=== PATIENT | female | born 1990 | race Caucasian/White ===

== ENCOUNTER 2020-04-24 15:02 | Outpatient (REF) | payer OTHER, SELFPAY | END 2020-04-24 15:03 | disposition home or self-care (01) | LOC: HO.LNP 15:02 | PROVIDERS: Visit Provider Internal Medicine | DX: Z01.419 Encounter for gynecological examination (general) (routine) without abnormal findings (principal) | CPT/HCPCS: 88141; 88142 ==

== ENCOUNTER 2021-02-27 10:49 | Outpatient (REF) | payer OTHER, SELFPAY ==
[2021-02-27 13:56] LABS: Hemoglobin 14.6 g/dl (12.0-16.0); Mean Corpuscular HGB Conc 32.4 g/dl (31.0-35.0); Mean Corpuscular Hemoglobin 29.7 pg (27.0-33.0); Mean Corpuscular Volume 91.6 fL (80-98); Mean Platelet Volume 11.8 fL (9.4-12.3); Platelet Count 240 X10*3/uL (160-400); Red Blood Count 4.91 X10*6/uL (4.20-5.50); Red Cell Distribution Width 12.2 % (11.0-16.0)
[2021-02-27 14:09] LABS: Alanine Aminotransferase 13 U/L (0-31); Albumin Level 4.6 g/dL (3.5-5.0); Alkaline Phosphatase 51 U/L (39-117); Anion Gap 13 (12-20); Aspartate Amino Transferase 15 U/L (5-31); Blood Urea Nitrogen 14 mg/dL (9-16); Calcium 9.3 mg/dL (8.4-10.2); Carbon Dioxide 26 mmol/L (22-29); Chloride 105 mmol/L (96-108); Cholesterol 177 mg/dL; Estimated Glomerular Filt Rate > 60; Glucose Fasting 94 mg/dL (60-99); HDL Cholesterol 50 mg/dL; LDL Cholesterol Calculated 111 mg/dl; Sodium 140 mmol/L (135-145); Total Protein 7.6 g/dL (6.5-8.0); Triglycerides 80 mg/dL
== END 2021-02-27 10:50 | disposition home or self-care (01) ==
LOC: HO.HMGCLDS 10:49
PROVIDERS: PCP Internal Medicine; Visit Provider Internal Medicine
DX: Z00.00 Encounter for general adult medical examination without abnormal findings (principal)
CPT/HCPCS: 36415; 80053; 80061; 85027

== ENCOUNTER 2021-08-01 09:14 | Emergency (ER) | payer OTHER, SELFPAY ==
--- NOTE | ~2021-08-01 | CT_ITS ---
EXAMINATION: CT-THORACIC SPINE CT-LUMBOSACRAL SPINE CLINICAL INFORMATION: Low back pain with bruising. COMPARISON: None TECHNIQUE: Helical CT scan of the thoracic and lumbosacral spine were obtained without administration of any contrast. Images are reconstructed in axial, coronal and sagittal plane. FINDINGS: Thoracic spine: The height heights of the thoracic vertebrae are well-maintained. Intervertebral disc heights are well-maintained. The posterior appendages are intact. The pre and paraspinal soft tissues are unremarkable. Lumbosacral spine: Mild mid lumbar dextroscoliosis is present. The heights of the lumbar vertebrae are well-maintained. Alignment is intact. Mild degenerative disc disease is noted at L4-5 and L5-S1. The posterior appendages are intact except for spondylolysis at L5 on the right. Focal area of dense sclerosis is noted at the pars interarticularis on the left (216:13) may represent reactive sclerosis versus underlying healing spondylolysis. No evidence of any paraspinal hematoma. Asymmetric partial fusion of the left sacroiliac joint is noted (106:15). CT/CT lumbar spine wo con IMPRESSION: 1. No CT evidence of any compression fracture identified involving the thoracolumbar spine. 2. No CT evidence of any significant paraspinal soft tissue hematoma. 3. Mild degenerative disc disease at L4-5 and L5-S1. 4. Spondylolysis at L5 on the right and focal radiographs dense sclerosis of the pars interarticularis on the left also on L5, may represent reactive sclerosis versus underlying healing spondylolysis. 5. Asymmetric partial fusion of the left sacroiliac joints.
--- NOTE | ~2021-08-01 | CT_ITS ---
EXAMINATION: CT-THORACIC SPINE CT-LUMBOSACRAL SPINE CLINICAL INFORMATION: Low back pain with bruising. COMPARISON: None TECHNIQUE: Helical CT scan of the thoracic and lumbosacral spine were obtained without administration of any contrast. Images are reconstructed in axial, coronal and sagittal plane. FINDINGS: Thoracic spine: The height heights of the thoracic vertebrae are well-maintained. Intervertebral disc heights are well-maintained. The posterior appendages are intact. The pre and paraspinal soft tissues are unremarkable. Lumbosacral spine: Mild mid lumbar dextroscoliosis is present. The heights of the lumbar vertebrae are well-maintained. Alignment is intact. Mild degenerative disc disease is noted at L4-5 and L5-S1. The posterior appendages are intact except for spondylolysis at L5 on the right. Focal area of dense sclerosis is noted at the pars interarticularis on the left (216:13) may represent reactive sclerosis versus underlying healing spondylolysis. No evidence of any paraspinal hematoma. Asymmetric partial fusion of the left sacroiliac joint is noted (106:15). CT/CT thoracic spine wo con IMPRESSION: 1. No CT evidence of any compression fracture identified involving the thoracolumbar spine. 2. No CT evidence of any significant paraspinal soft tissue hematoma. 3. Mild degenerative disc disease at L4-5 and L5-S1. 4. Spondylolysis at L5 on the right and focal radiographs dense sclerosis of the pars interarticularis on the left also on L5, may represent reactive sclerosis versus underlying healing spondylolysis. 5. Asymmetric partial fusion of the left sacroiliac joints.
[2021-08-01 09:26] VITALS: BP 140/81; PULSE 97; RESP 16; TEMP 36.4; O2SAT 99; BMI 33.3
--- NOTE | 2021-08-01 10:43 | ED.GENADULT ---
HPI - General Adult General Chief complaint: Back Pain/Injury Stated complaint: Lower back pain Time Seen by Provider: 08/01/21 10:24 Source: patient Mode of arrival: ambulatory Limitations: no limitations History of Present Illness HPI narrative: 31-year-old female presents from urgent care for concern for low back pain in the setting of unexplained ecchymosis. Patient has had low back pain for 10 days, now has bruising on her low back. Patient was seen 1 week ago for low back pain, prescribed prednisone and meloxicam. States that her back pain got better, but after she finished the prednisone 2 days ago it is still there. States that the original back pain started July 21 when she reached across her car in a awkward position and hurt her back. This has happened before, it was never this bad, and she never had bruising. No red flag symptoms, no saddle paresthesias, no fevers, no bowel or bladder incontinence, no leg weakness, no personal history of IV drug use or cancer, no history of bleeding disorder. Related Data Home Medications Medication Instructions Recorded Confirmed ibuprofen 600 mg tablet 600 mg PO Q8H PRN 02/24/20 02/26/21 Previous Rx's Medication Instructions Recorded meloxicam 15 mg tablet 15 mg PO DAILY #7 tab 07/25/21 prednisone 20 mg tablet 40 mg PO DAILY 5 Days #10 tab 08/01/21 Allergies Allergy/AdvReac Type Severity Reaction Status Date / Time No Known Allergies Allergy Verified 08/01/21 09:28 [No Known Allergies*] Review of Systems Constitutional: Constitutional: Denies body ache(s), Denies chills, Denies fatigue, Denies fever(s), Denies headache(s), Denies malaise and Denies weakness Eyes: Eyes: Denies diplopia ENT: Denies vertigo, Denies dizziness, Denies otalgia, Denies headache(s), Denies mouth pain, Denies post nasal drip, Denies sinus pain, Denies sinus pressure, Denies sore throat and Denies throat swelling Cardiovascular: Cardiovascular: Denies chest pain, Denies syncope, Denies leg edema, Denies lightheadedness, Denies Loss of Consciousness, Denies palpitations and Denies dyspnea Respiratory: Respiratory: Denies chest congestion, Denies cough and Denies dyspnea Gastrointestinal: Gastrointestinal: Denies abdominal pain, Denies hematochezia, Denies constipation, Denies fecal incontinence, Denies diarrhea and Denies vomiting Genitourinary: Genitourinary: Denies urinary incontinence Musculoskeletal: Musculoskeletal: Reports no additional musculoskeletal complaints and Denies muscle weakness Integumentary/Breasts: Skin/Breast: Denies skin pain Comments: mild bilateral brusing mid back Neurologic: Denies confusion, Denies vertigo, Denies dizziness, Denies syncope, Denies headache(s), Denies Sensory deficit (Neuro) and Denies weakness Psychiatric: Psychiatric: Denies anxiety, Denies confusion and Denies depression Endocrine: Endocrine: Denies fatigue and Denies palpitations Allergic/Immunologic: Allergic/Immunologic: Denies throat swelling PMF Past Medical History Medical History Annual physical exam Vaginitis Surgical History No pertinent past surgical history Family History Family History Father Diabetes mellitus Mother No problems noted. 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 Current occupational exposures/hazards: No Cognitive needs: No Hearing needs: No Vision needs: No Physical Exam ED Vital Signs: Vital Signs - 24 hr 08/01/21 09:26 08/01/21 12:57 Temperature 97.5 F Pulse Rate 97 87 Respiratory Rate 16 18 Blood Pressure 140/81 H 124/84 Pulse Oximetry 99 98 BMI result Body Mass Index 33.3 Const General: no acute distress, alert and awake; No confusion Nutritional Appearance: obese Orientation/consciousness: patient oriented x3 and No confusion Limitations: no limitations HENMT Head: Yes normal to inspection, Yes No palpable skull fracture present, Yes normocephalic, Yes atraumatic and No abrasion Ears: hearing grossly normal bilaterally General nose exam: Normal external nose present Face and sinus: Yes normal facial exam Mouth: Normal oral and palatal mucosa present Throat: Yes posterior oropharynx normal Eyes Conjunctivae: conjunctivae normal Pupils: Equal, round and reactive pupils present Neck Neck: Yes normal visual inspection, Yes no meningeal signs and Yes trachea midline Resp Effort & Inspection: normal respiratory effort and able to speak in complete sentences Auscultation: clear to auscultation bilaterally, no crackles, no rales, no rhonchi and no wheezes Cardio Rate: regular rate Rhythm: regular rhythm GI Inspection: Yes normal to inspection Palpation (GI): Soft to palpation, not firm, nontender, no guarding and not rigid General: Yes no CVA tenderness Back/Spine/Pelvis Back: no CVA tenderness Cervical Spine: normal cervical lordosis, cervical ROM normal, No cervical spasm, No Cervical spine tenderness and No step off deformity Thoracic/Lumbar Spine: pain with thoraco-lumbar ROM, No thoracic spinal tenderness and No lumbar spinal tenderness Pelvis: no pain with anterior-posterior compression, no pain with lateral compression and buttock tenderness on the left Skin General skin exam: ecchymosis Neuro General: patient oriented x3, no meningeal signs and No confusion Cranial nerves: Yes Equal, round and reactive pupils present Sensory Exam: No Sensory deficit (Neuro) Extrem General: Yes normal to inspection, Yes full ROM and Yes capillary refill normal Psych Appearance: well kempt Mental Status: mental status grossly normal Speech and movement: Normal speech and movement present Affect: normal affect Attitude: cooperative Thought process: Normal thought process present Course Course Course Narrative: 31-year-old female presents with back pain that is not getting better after 10 days, with ecchymosis. She was sent from urgent care. Labs and coagulation studies are unremarkable, CT shows mild degenerative disc disease at L4-L5, and L5-S1. There is fusion of left SI joint. There is spondylolysis at L5 on the right, question if this is acute Patient has no vertebral point tenderness, no red flag symptoms. Discussed with Dr Michel, who felt this was an appropriate work up. Restarted prednisone, counseled patient to follow-up with [facility]. Reevaluation(s) Reevaluation #1: CT/CT lumbar spine wo con IMPRESSION: ? 1. No CT evidence of any compression fracture identified involving the thoracolumbar spine. 2. No CT evidence of any significant paraspinal soft tissue hematoma. 3. Mild degenerative disc disease at L4-5 and L5-S1. 4. Spondylolysis at L5 on the right and focal radiographs dense sclerosis of the pars interarticularis on the left also on L5, may represent reactive sclerosis versus underlying healing spondylolysis. 5. Asymmetric partial fusion of the left sacroiliac joints. Medical Decision Making Lab Data Result diagrams: 08/01/21 11:03 08/01/21 11:03 Labs: Lab Results 08/01/21 08/01/21 08/01/21 Range/Units 10:57 10:57 11:03 WBC 10.3 (4.8-10.8) X10*3/uL RBC 5.06 (4.20-5.50) X10*6/uL Hgb 15.4 (12.0-16.0) g/dl Hct 46.2 (37.0-47.0) % MCV 91.3 (80.0-98.0) fL MCH 30.4 (27.0-33.0) pg MCHC 33.3 (31.0-35.0) g/dl RDW 12.3 (11.0-16.0) % Plt Count 303 (160-400) X10*3/uL MPV 10.0 (9.4-12.3) fL Immature Gran % (Auto) 0.7 H (0.0-0.4) % Neut % (Auto) 61.8 (45-73) % Lymph % (Auto) 25.6 (20-40) % [place] % (Auto) 7.6 (2-11) % Eos % (Auto) 3.4 (0-4) % Baso % (Auto) 0.9 (0-2) % Lymph # (Auto) 2.6 (1.2-4.9) X10*3/uL [place] # (Auto) 0.8 (0.1-1.2) X10*3/uL Eos # (Auto) 0.4 (0.0-0.4) X10*3/uL Baso # (Auto) 0.1 (0.0-0.2) X10*3/uL Abs Immat Gran (auto) 0.07 H (0.00-0.03) X10*3/uL Absolute Neuts (auto) 6.3 (2.0-8.3) x10*3/uL Absolute Nucleated RBC 0.000 (0.0-0.012) X10*3/uL Nucleated RBC % (auto) 0.0 (0.0-0.2) /100WBC PT (9.9-13.0) SEC INR (0.9-1.1) APTT (24.1-38.0) SEC Sodium (135-145) mmol/L Potassium (3.3-5.1) mmol/L Chloride (96-108) mmol/L Carbon Dioxide (22-29) mmol/L Anion Gap (12-20) BUN (9-16) mg/dL Creatinine (0.5-1.4) mg/dL Estim Creat Clear Calc Estimated GFR Random Glucose (60-115) mg/dL Calcium (8.4-10.2) mg/dL Total Bilirubin (0.0-1.0) mg/dL AST (5-31) U/L ALT (0-31) U/L Alkaline Phosphatase (39-117) U/L Total Protein (6.5-8.0) g/dL Albumin (3.5-5.0) g/dL Urine Color STRAW Urine Appearance CLEAR Urine pH 6.5 (5.0-8.0) Ur Specific [place] 1.010 (1.005-1.025) Urine Protein NEG (NEG-TRACE) MG/DL Urine Glucose (UA) NEG (NEG) MG/DL Urine Ketones NEG (NEG) MG/DL Urine Blood NEG (NEG) Urine Nitrite NEG (NEG) Ur Leukocyte Esterase NEG (NEG) Urine Test NEGATIVE (NEGATIVE) 08/01/21 08/01/21 Range/Units 11:03 11:03 WBC (4.8-10.8) X10*3/uL RBC (4.20-5.50) X10*6/uL Hgb (12.0-16.0) g/dl Hct (37.0-47.0) % MCV (80.0-98.0) fL MCH (27.0-33.0) pg MCHC (31.0-35.0) g/dl RDW (11.0-16.0) % Plt Count (160-400) X10*3/uL MPV (9.4-12.3) fL Immature Gran % (Auto) (0.0-0.4) % Neut % (Auto) (45-73) % Lymph % (Auto) (20-40) % [place] % (Auto) (2-11) % Eos % (Auto) (0-4) % Baso % (Auto) (0-2) % Lymph # (Auto) (1.2-4.9) X10*3/uL [place] # (Auto) (0.1-1.2) X10*3/uL Eos # (Auto) (0.0-0.4) X10*3/uL Baso # (Auto) (0.0-0.2) X10*3/uL Abs Immat Gran (auto) (0.00-0.03) X10*3/uL Absolute Neuts (auto) (2.0-8.3) x10*3/uL Absolute Nucleated RBC (0.0-0.012) X10*3/uL Nucleated RBC % (auto) (0.0-0.2) /100WBC PT 9.7 L (9.9-13.0) SEC INR 0.9 (0.9-1.1) APTT 36.0 (24.1-38.0) SEC Sodium 137 (135-145) mmol/L Potassium 4.3 (3.3-5.1) mmol/L Chloride 100 (96-108) mmol/L Carbon Dioxide 31 H (22-29) mmol/L Anion Gap 10 L (12-20) BUN 15 (9-16) mg/dL Creatinine 0.84 (0.5-1.4) mg/dL Estim Creat Clear Calc 109.0 Estimated GFR > 60 Random Glucose 104 (60-115) mg/dL Calcium 10.0 D (8.4-10.2) mg/dL Total Bilirubin 1.4 H (0.0-1.0) mg/dL AST 21 (5-31) U/L ALT 45 H (0-31) U/L Alkaline Phosphatase 71 D (39-117) U/L Total Protein 7.8 (6.5-8.0) g/dL Albumin 4.6 (3.5-5.0) g/dL Urine Color Urine Appearance Urine pH (5.0-8.0) Ur Specific [place] (1.005-1.025) Urine Protein (NEG-TRACE) MG/DL Urine Glucose (UA) (NEG) MG/DL Urine Ketones (NEG) MG/DL Urine Blood (NEG) Urine Nitrite (NEG) Ur Leukocyte Esterase (NEG) Urine Test (NEGATIVE) Discharge Plan 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 Please fill your prescription for prednisone intake as prescribed. Please call [facility] at the following number. I have referred you to them but I want you to call them and see them as well.[phone] Please take prednisone as prescribed Prescriptions: New prednisone 20 mg tablet 40 mg PO DAILY 5 Days Qty: 10 0RF No Action ibuprofen 600 mg tablet 600 mg PO Q8H PRN0RF meloxicam 15 mg tablet 15 mg PO DAILY Qty: 7 0RF Referrals: [facility] [Outside] - 2 days Interventions: ED Discharge Assessment Last Done: 08/01/21 13:29 Discharge Date/Time: 08/01/21 13:29
[2021-08-01 11:24] LABS: MANUAL DIFF FLAG NO
[2021-08-01 11:26] LABS: Appearance Urine CLEAR; Color Urine STRAW; Glucose Urine UA NEG (NEG); Leukocyte Esterase Urine NEG (NEG); Nitrite Urine NEG (NEG); PH 6.5 (5.0-8.0); Urine Blood NEG (NEG); Urine Ketones NEG (NEG); Urine Protein NEG (NEG-TRACE)
[2021-08-01 11:28] LABS: UPreg QC Valid YES; Urine Pregnancy NEGATIVE (NEGATIVE)
[2021-08-01 11:30] LABS: Basophils Absolute Auto 0.1 X10*3/uL (0.0-0.2); Basophils Percent Auto 0.9 % (0-2); Eosinophils Absolute Auto 0.4 X10*3/uL (0.0-0.4); Eosinophils Percent Auto 3.4 % (0-4); Hematocrit 46.2 % (37.0-47.0); Hemoglobin 15.4 g/dl (12.0-16.0); Imm Gran Abs Auto 0.07 X10*3/uL (0.00-0.03); Imm Gran Pct Auto 0.7 % (0.0-0.4); Lymphocytes Absolute Auto 2.6 X10*3/uL (1.2-4.9); Lymphocytes Percent Auto 25.6 % (20-40); Mean Corpuscular HGB Conc 33.3 g/dl (31.0-35.0); Mean Corpuscular Hemoglobin 30.4 pg (27.0-33.0); Mean Corpuscular Volume 91.3 fL (80.0-98.0); Monocytes Absolute Auto 0.8 X10*3/uL (0.1-1.2); Monocytes Percent Auto 7.6 % (2-11); Neutrophils Absolute Auto 6.3 x10*3/uL (2.0-8.3); Neutrophils Percent Auto 61.8 % (45-73); Platelet Count 303 X10*3/uL (160-400); Red Blood Count 5.06 X10*6/uL (4.20-5.50); Red Cell Distribution Width 12.3 % (11.0-16.0); White Blood Count 10.3 X10*3/uL (4.8-10.8)
[2021-08-01 11:41] LABS: Alanine Aminotransferase 45 U/L (0-31); Albumin Level 4.6 g/dL (3.5-5.0); Alkaline Phosphatase 71 U/L (39-117); Anion Gap 10 (12-20); Aspartate Amino Transferase 21 U/L (5-31); Bilirubin Total 1.4 mg/dL (0.0-1.0); Blood Urea Nitrogen 15 mg/dL (9-16); Carbon Dioxide 31 mmol/L (22-29); Chloride 100 mmol/L (96-108); Estimated Glomerular Filt Rate > 60; Glucose Random 104 mg/dL (60-115); Potassium 4.3 mmol/L (3.3-5.1); Sodium 137 mmol/L (135-145); Total Protein 7.8 g/dL (6.5-8.0)
[2021-08-01 11:46] LABS: INTERNATIONAL NORM RATIO 0.9 (0.9-1.1); Prothrombin Time 9.7 SEC (9.9-13.0)
[2021-08-01 12:57] VITALS: BP 124/84; PULSE 87; RESP 18; O2SAT 98
== END 2021-08-01 13:29 | disposition home or self-care (01) ==
PROVIDERS: Physician Assistant; Emergency Provider Emergency Medicine; PCP Internal Medicine
DX: M54.50 Low back pain, unspecified (principal); M47.816 Spondylosis without myelopathy or radiculopathy, lumbar region; R23.3 Spontaneous ecchymoses
CPT/HCPCS: 36415; 72128; 72131; 80053; 81003; 81025; 85025; 85610; 85730; 99284

== ENCOUNTER 2022-03-25 12:33 | Outpatient (REF) | payer OTHER, SELFPAY ==
--- NOTE | 2022-03-25 17:15 | PFT_ITS ---
INDICATION: Asthma. SPIROMETRY: FEV1 to FVC of 92% with an FEV1 of 3.96 L, which is 121% predicted, an FVC of 4.32 L, which is 111% predicted. No significant response to bronchodilators noted. Maximum voluntary ventilation 125% predicted. LUNG VOLUMES: Total lung capacity 105% predicted with an expiratory reserve volume of 82% predicted. DIFFUSION CAPACITY: DLCO 118% predicted. COMPARISONS: None. INTERPRETATION: No obstructive nor restrictive ventilatory defects identified. No significant response to bronchodilators noted. Normal maximum voluntary ventilation. Lung volumes are within normal limits and diffusion capacity also within normal limits. Her flow volume loop appears to be completely normal except for some sawtooth pattern during the inspiratory limb which may be secondary to redundant upper airway tissues. If asthma is in the differential, methacholine challenge may be helpful in assessing for hyper-reactive airways, otherwise clinical correlation warranted. Neto Conley MD MR/MODL / [id number]
== END 2022-03-25 12:34 | disposition home or self-care (01) ==
LOC: HO.RESP 12:33
PROVIDERS: PCP Internal Medicine; Visit Provider Internal Medicine
DX: J45.909 Unspecified asthma, uncomplicated (principal)
CPT/HCPCS: 94060; 94727; 94729

== ENCOUNTER 2023-03-03 07:31 | Outpatient (AMB) | payer OTHER, SELFPAY ==
--- NOTE | 2023-03-03 07:43 | A.OFFPC_ITS ---
Vital Signs 03/03/23 07:45 Height 5 ft 5 in Weight 195 lb BMI 32.4 BP 108/64 Blood Pressure Location Rt brachial Position Sitting Pulse 87 Pulse Source Pulse Oximeter Pulse Oximetry (%) 98 Oxygen Delivery Method Room Air Intake Visit Reasons: Annual PE Allergies No Known Allergies [No Known Allergies*] Allergy (Verified 03/03/23 07:45) Medication List - Last Reconciled 03/03/23 by Johana Alexandre MD albuterol sulfate 90 mcg/actuation 2 puffs inhalation Q6H PRN fluticasone propion-salmeterol 100-50 mcg/dose (Advair Diskus) 1 inh inhalation BID loratadine (Claritin) 10 mg PO DAILY meloxicam PO PRN Tobacco use date assessed: 07/11/22 Dental Screening Dental Screen Date: 03/03/23 Did you have a dental visit in the last 12 months?: No Did you have a dental problem in the last 6 months where you did not have access to dental care?: No Was dental information given to patient?: No HPI Annual PE HPI Details PATIENT PRESENTS FOR PHYSICAL. She just got . Asthma has been well controlled without Advair. Patient does not need to use albuterol more than once every couple months since she moved to a new apartment. [facility] Medical History Vaginitis Annual physical exam Surgical History No pertinent past surgical history Family History Father Diabetes mellitus Mother No problems noted. 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 How often do you have a drink containing alcohol?: Never 3. How often do you have six or more drinks on one occasion?: Never Total Score: 0 Score Reviewed/Action Taken: No VAISHNAVI-7 AMB Questionnaire VAISHNAVI-7 Date VAISHNAVI - 7 assessed: 07/11/22 Source: Developed by Drs. Benji Hernández, Elizabeth Keating, Michael Vazquez and colleagues, with an educational sony from [employer]. Review of Systems Const All systems reviewed & are unremarkable except as noted in HPI and below Reports no additional complaints Eyes Reports no additional complaints ENT Reports no additional complaints Card Reports no additional complaints Resp Reports no additional complaints GI Reports no additional complaints Reports no additional complaints Physical exam (Primary Care) Vital Signs: Last Vital Signs Pulse 87 03/03/23 07:45 BP 108/64 03/03/23 07:45 Pulse Ox 98 03/03/23 07:45 Oxygen Delivery Method Room Air 03/03/23 07:45 BMI result Body Mass Index 32.4 Tobacco/Smoking Status: Tobacco use Status Tobacco use date assessed 07/11/22 03/03/23 07:45 Patient Tobacco Use Status Former Tobacco user 03/03/23 07:45 Tobacco use type Cigarette 03/03/23 07:45 e-Cigarette/Vaping Use Never Used 03/03/23 07:45 Thrive Assessment: Date of Thrive Assessment Date Thrive assessed 07/11/22 03/03/23 07:45 Const General: no acute distress HENMT Head: Yes normal to inspection Ears: hearing grossly normal bilaterally General nose exam: Normal external nose present Face and sinus: Yes normal facial exam Mouth: Normal oral and palatal mucosa present Eyes General: appearance normal, both eyes and all related structures Neck Neck: Yes no lymphadenopathy and Yes supple Chest Chest palpation & inspection: normal inspection of the chest Breast/axilla inspection: normal inspection of the breasts Resp Effort & Inspection: normal respiratory effort Auscultation: clear to auscultation bilaterally Cardio Rhythm: regular rhythm Heart sounds: S1 normal heart sound present and S2 normal heart sound present GI Inspection: Yes normal to inspection Palpation (GI): Soft to palpation Auscultation: normal bowel sounds External Female Exam: normal external appearance Speculum Exam - Vagina: normal appearance of the vagina Speculum Exam - Cervix: normal appearance of the cervix Bimanual exam- vagina & uterus: normal bimanual exam Assessment and Plan Assessment & Plan (1) Annual physical exam: Code(s): Z00.00 - Encounter for general adult medical examination without abnormal findings Plan: Well-balanced diet and regular physical activity discussed with the patient . she will have fasting labs today. Pap smear was done (2) Asthma: Comment: Mild p.r.n. albuterol Code(s): J45.909 - Unspecified asthma, uncomplicated Orders: Orders Comprehensive [place]. Panel Fast Today Z00.00 - Encounter for general adult medical examination without abnormal findings Complete Blood Count Auto Diff Today Z00.00 - Encounter for general adult medical examination without abnormal findings Pap Smear Today Z00.00 - Encounter for general adult medical examination without abnormal findings Lipid Panel Today Z00.00 - Encounter for general adult medical examination without abnormal findings Coding Level of Care Code Est Pt Prev Care 18-39y(44779) Diagnoses Annual physical exam Z00.00 Asthma J45.909
[2023-03-03 07:45] VITALS: BP 108/64; PULSE 87; O2SAT 98; BMI 32.4
== END 2023-03-03 08:25 | disposition home or self-care (01) ==
PROVIDERS: Visit Provider Internal Medicine
DX: Z00.00 Encounter for general adult medical examination without abnormal findings (principal); J45.909 Unspecified asthma, uncomplicated
CPT/HCPCS: 99395

== ENCOUNTER 2023-03-03 08:25 | Outpatient (REF) | payer OTHER, SELFPAY ==
[2023-03-07 06:23] LABS: HPV mRNA E6/E7 rflx Not Detected (Not Detected)
== END 2023-03-03 08:26 | disposition home or self-care (01) ==
LOC: HO.LNP 08:25
PROVIDERS: Visit Provider Internal Medicine
DX: Z01.419 Encounter for gynecological examination (general) (routine) without abnormal findings (principal)
CPT/HCPCS: 87624; 88142

== ENCOUNTER 2023-03-03 08:27 | Outpatient (REF) | payer OTHER, SELFPAY ==
[2023-03-03 12:03] LABS: MANUAL DIFF FLAG NO
[2023-03-03 12:05] LABS: Basophils Absolute Auto 0.1 X10*3/uL (0.0-0.2); Basophils Percent Auto 1.7 % (0-2); Eosinophils Absolute Auto 0.2 X10*3/uL (0.0-0.4); Eosinophils Percent Auto 2.8 % (0-4); Hematocrit 46.4 % (37.0-47.0); Hemoglobin 14.9 g/dl (12.0-16.0); Imm Gran Abs Auto 0.02 X10*3/uL (0.00-0.03); Imm Gran Pct Auto 0.3 % (0.0-0.4); Lymphocytes Absolute Auto 1.7 X10*3/uL (1.2-4.9); Lymphocytes Percent Auto 24.4 % (20-40); Mean Corpuscular HGB Conc 32.1 g/dl (31.0-35.0); Mean Corpuscular Hemoglobin 29.2 pg (27.0-33.0); Mean Platelet Volume 11.4 fL (9.4-12.3); Monocytes Absolute Auto 0.7 X10*3/uL (0.1-1.2); Monocytes Percent Auto 9.5 % (2-11); Neutrophils Absolute Auto 4.3 x10*3/uL (2.0-8.3); Neutrophils Percent Auto 61.3 % (45-73); Platelet Count 249 X10*3/uL (160-400); Red Cell Distribution Width 12.2 % (11.0-16.0); White Blood Count 7.1 X10*3/uL (4.8-10.8)
[2023-03-03 12:36] LABS: Alanine Aminotransferase 19 U/L (0-31); Albumin Level 4.4 g/dL (3.5-5.0); Alkaline Phosphatase 73 U/L (39-117); Anion Gap 12 (12-20); Aspartate Amino Transferase 18 U/L (5-31); Bilirubin Total 1.3 mg/dL (0.0-1.0); Blood Urea Nitrogen 13 mg/dL (9-16); Calcium 9.7 mg/dL (8.4-10.2); Carbon Dioxide 24 mmol/L (22-29); Chloride 110 mmol/L (96-108); Cholesterol 180 mg/dL (<200); Estimated Glomerular Filt Rate > 60; Glucose Fasting 108 mg/dL (60-99); HDL Cholesterol 42 mg/dL (>40); LDL Cholesterol Calculated 120 mg/dL (<100); Potassium 4.1 mmol/L (3.3-5.1); Sodium 142 mmol/L (135-145); Total Protein 7.7 g/dL (6.5-8.0); Triglycerides 90 mg/dL (<150)
== END 2023-03-03 08:28 | disposition home or self-care (01) ==
LOC: HO.HMGCLDS 08:27
PROVIDERS: PCP Internal Medicine; Visit Provider Internal Medicine
DX: Z00.00 Encounter for general adult medical examination without abnormal findings (principal)
CPT/HCPCS: 36415; 80053; 80061; 85025

== ENCOUNTER 2023-09-08 09:38 | Outpatient (AMB) | payer OTHER, SELFPAY ==
[2023-09-08 10:48] VITALS: BP 130/80; PULSE 92; TEMP 36.4; O2SAT 98; BMI 33.1
--- NOTE | 2023-09-08 10:48 | MHC.OFFWIV ---
Intake Vital Signs 09/08/23 10:48 Height 5 ft 5 in Weight 199 lb BMI 33.1 BP 130/80 Blood Pressure Location Lt brachial Position Sitting Pulse 92 Pulse Source Pulse Oximeter Temp 97.6 F Temp Source Temporal Artery Scan Pulse Oximetry (%) 98 Oxygen Delivery Method Room Air Intake Visit Reasons: EP cough short of breath Intake Note: pt is here today for cough short of breath started 3 weeks ago Patient Tobacco Use Status: Former Tobacco user Allergies No Known Allergies [No Known Allergies*] Allergy (Verified 09/08/23 11:24) Do you need a note to return to daycare/school/sports/work: No HPI HPI Comments History of Present Illness Details 33-year-old female presents to the office for a sick visit. Patient reports getting repeated upper respiratory tract infections in the past few months. Currently she started getting sick again 2 days ago. 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 Patient is reporting symptoms of sinus congestion, postnasal drip and shortness of breath. [facility] Medical History Vaginitis Annual physical exam Surgical History No pertinent past surgical history Family History Father Diabetes mellitus Mother No problems noted. 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 Current occupational exposures/hazards: No Cognitive needs: No Hearing needs: No Vision needs: Yes Physical Exam Vital Signs: Last Vital Signs Temp 97.6 F 09/08/23 10:48 Pulse 92 09/08/23 10:48 BP 130/80 09/08/23 10:48 Pulse Ox 98 09/08/23 10:48 Oxygen Delivery Method Room Air 09/08/23 10:48 BMI result Body Mass Index 33.1 Const General: cooperative and healthy appearing Nutritional Appearance: well nourished Orientation/consciousness: patient oriented x3 Limitations: no limitations HEENT Head: Yes normal to inspection Eyes General: appearance normal, both eyes and all related structures Neck Neck: Yes normal visual inspection Chest Chest palpation & inspection: normal palpation of entire chest wall Resp Effort & Inspection: normal respiratory effort Neuro General: patient oriented x3 Assessment & Plan Assessment & Plan (1) Acute bronchitis: Code(s): J20.9 - Acute bronchitis, unspecified Plan Antibiotics ordered. Increase fluid intake. Tylenol for aches and pains. If symptoms worsen, follow-up here for a recheck. Chest x-ray was personally reviewed by me. No infiltrate seen. Orders: Orders XR chest 2V Today R05.9 - Cough, unspecified Coding Level of Care Code Est Pt Level 4 (39875) Diagnoses Acute bronchitis J20.9
== END 2023-09-08 14:03 | disposition home or self-care (01) ==
PROVIDERS: PCP Internal Medicine; Visit Provider Internal Medicine
DX: J20.9 Acute bronchitis, unspecified (principal)
CPT/HCPCS: 99214

== ENCOUNTER 2023-09-08 12:09 | Outpatient (REF) | payer OTHER, SELFPAY ==
--- NOTE | ~2023-09-08 | XR_ITS ---
EXAMINATION: XR CHEST CLINICAL INFORMATION: Cough COMPARISON: Previous chest x-ray from 2019 TECHNIQUE: 2 views of the chest were obtained. FINDINGS: No significant abnormality is noted involving the heart, lungs, mediastinum, bony thorax or soft tissues. XR/XR chest 2V IMPRESSION: Unremarkable examination.
== END 2023-09-08 12:10 | disposition home or self-care (01) ==
LOC: HO.HMGCX 12:09
PROVIDERS: PCP Internal Medicine; Visit Provider Internal Medicine
DX: R05.9 Cough, unspecified (principal)
CPT/HCPCS: 71046

== ENCOUNTER 2024-03-25 08:32 | Outpatient (REF) | payer OTHER, SELFPAY ==
[2024-03-25 10:13] LABS: UPreg QC Valid YES; Urine Pregnancy NEGATIVE (NEGATIVE)
== END 2024-03-25 08:33 | disposition home or self-care (01) ==
LOC: HO.HMGCLDS 08:32
PROVIDERS: PCP Internal Medicine; Visit Provider Internal Medicine
DX: N91.2 Amenorrhea, unspecified (principal)
CPT/HCPCS: 81025; 96127

== ENCOUNTER 2024-03-25 08:32 | Outpatient (AMB) | payer OTHER, SELFPAY ==
[2024-03-25 08:34] VITALS: BP 104/66; PULSE 106; O2SAT 98; BMI 34.9
--- NOTE | 2024-03-25 08:34 | A.OFFPC_ITS ---
Vital Signs 03/25/24 08:34 Height 5 ft 5 in Weight 210 lb BMI 34.9 BP 104/66 Blood Pressure Location Lt brachial Position Sitting Pulse 106 H Pulse Source Pulse Oximeter Pulse Oximetry (%) 98 Oxygen Delivery Method Room Air Intake Visit Reasons: Annual PE Intake Note: Pt is here today for PE. Allergies No Known Allergies [No Known Allergies*] Allergy (Verified 03/25/24 08:35) Medication List - Last Reconciled 03/25/24 by Johana Alexandre MD albuterol sulfate 90 mcg/actuation 2 puffs inhalation Q6H PRN docosahexaenoic acid ( DHA) PO Tobacco use date assessed: 03/25/24 Dental Screening Dental Screen Date: 03/25/24 Did you have a dental visit in the last 12 months?: Yes Did you have a dental problem in the last 6 months where you did not have access to dental care?: No Was dental information given to patient?: Patient has dentist HPI Annual PE HPI Details Patient presents for physical. She had a miscarriage this summer and follows up with [employer] [facility] Medical History Vaginitis Annual physical exam Surgical History No pertinent past surgical history Family History Father Diabetes mellitus Mother No problems noted. 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 1. Little interest or pleasure in doing things: not at all 2. Feeling down, depressed, or hopeless: not at all 3. Trouble falling or staying asleep, or sleeping too much: not at all 4. Feeling tired or having little energy: not at all 5. Poor appetite or overeating: not at all 6. Feeling bad about yourself - or that you are a failure or have let yourself or your family down: not at all 7. Trouble concentrating on things, such as reading the newspaper or watching television: not at all 8. Moving or speaking so slowly that other people could have noticed. Or the opposite - being so fidgety or restless that you have been moving around a lot more than usual: not at all 9. Thoughts that you would be better off or of hurting yourself in some way: not at all Total score: 0 Depression Screening Interpretation: Negative Depression Screening Done: Yes 68819 - PHQ-9 Billing: Yes Source: Developed by Drs. Benji Hernández, Elizabeth Keating, Michael Vazquez and colleagues, with an educational sony from [employer]. Thrive Questionnaire Date Thrive assessed: 03/25/24 I am a: Patient What is your living situation today?: I have a steady place to live Within the past 12 months, did the food you bought not last and you didn't have the money to get more?: Never true Within the past 12 months, did you worry whether your food would run out before you got money to buy more?: Never true Do you have trouble paying for medicines?: No Do you have trouble getting transportation to medical appointments?: No Do you have trouble paying your heating and electricity bill?: No Do you have trouble taking care of your child, family member or friend?: No Do you have trouble with day-to-day activities such as bathing, preparing meals, shopping, managing finances, etc.?: No Are you currently unemployed and looking for a job?: No Are you interested in more education?: No Please select the resources that you would like help with: None Currently or been in a relationship where the following occur: No concerns reported THRIVE Score: 0 AUDIT C Alcohol Use Questionnaire (AUDIT-C) 1. How often do you have a drink containing alcohol?: Never 3. How often do you have six or more drinks on one occasion?: Never Total Score: 0 VAISHNAVI-7 AMB Questionnaire VAISHNAVI-7 Date VAISHNAVI - 7 assessed: 03/25/24 Feeling nervous, anxious, or on edge: 0 = Not at all Not being able to stop or control worryin = Not at all Worrying too much about different things: 0 = Not at all Trouble relaxin = Not at all Being so restless that it is hard to sit still: 0 = Not at all Becoming easily annoyed or irritable: 0 = Not at all Feeling afraid as if something awful might happen: 0 = Not at all Total VAISHNAVI-7 score (0-4 normal; 5-9 mild; 10-14 moderate; 15-21 severe): 0 Source: Developed by Drs. Benji Hernández, Elizabeth Keating, Michael Vazquez and colleagues, with an educational sony from [employer]. VAISHNAVI-7 Assessment Billing VAISHNAVI-7 Assessment Tool: VAISHNAVI-7 Assessment 00109 Review of Systems Const All systems reviewed & are unremarkable except as noted in HPI and below Eyes Reports no additional complaints ENT Reports no additional complaints Card Reports no additional complaints Resp Reports no additional complaints GI Reports no additional complaints Reports no additional complaints Physical exam (Primary Care) Vital Signs: Last Vital Signs Pulse 106 H 03/25/24 08:34 BP 104/66 03/25/24 08:34 Pulse Ox 98 03/25/24 08:34 Oxygen Delivery Method Room Air 03/25/24 08:34 BMI result Body Mass Index 34.9 Tobacco/Smoking Status: Tobacco use Status Tobacco use date assessed 03/25/24 03/25/24 08:37 Patient Tobacco Use Status Former Tobacco user 03/25/24 08:37 Tobacco use type Cigarette 03/25/24 08:37 e-Cigarette/Vaping Use Never Used 03/25/24 08:37 PHQ-9: PHQ-9 Score PHQ-9: Total score 0 03/25/24 08:42 Depression Screening Interpretation: Negative Thrive Assessment: Date of Thrive Assessment Date Thrive assessed 03/25/24 03/25/24 08:42 Currently or been in a relationship where the following occur: No concerns reported Const General: no acute distress HENMT Head: Yes normal to inspection Ears: hearing grossly normal bilaterally Face and sinus: Yes normal facial exam Mouth: Normal oral and palatal mucosa present Throat: Yes posterior oropharynx normal Eyes General: appearance normal, both eyes and all related structures Neck Neck: Yes no lymphadenopathy and Yes supple Resp Effort & Inspection: normal respiratory effort Auscultation: clear to auscultation bilaterally Cardio Rhythm: regular rhythm Heart sounds: S1 normal heart sound present and S2 normal heart sound present GI Inspection: Yes normal to inspection Palpation (GI): Soft to palpation Percussion: Yes normal to percussion Auscultation: normal bowel sounds Coding Level of Care Code Est Pt Prev Care 18-39y(53711) Diagnoses Amenorrhea N91.2 Annual physical exam Z00.00 Additional Codes VAISHNAVI-7 Assessment Billing - VAISHNAVI-7 Assessment Tool: VAISHNAVI-7 Assessment 80203 ([id number]) PHQ-9 - 06212 - PHQ-9 Billing: Yes ([id number]) Assessment & Plan Assessment & Plan (1) Amenorrhea: Code(s): N91.2 - Amenorrhea, unspecified Category: Medical Plan: Check test and follow-up with financial aid (2) Annual physical exam: Code(s): Z00.00 - Encounter for general adult medical examination without abnormal findings Category: Medical Plan: Well-balanced diet regular physical activity discussed with the patient. Orders: Orders Ur Preg Test Today N91.2 - Amenorrhea, unspecified Medications: New albuterol sulfate 90 mcg/actuation 2 puffs inhalation Q6H PRN 8.5 grams 1RF shortness of breath or wheezing
== END 2024-03-25 08:54 | disposition home or self-care (01) ==
PROVIDERS: PCP Internal Medicine; Visit Provider Internal Medicine
DX: N91.2 Amenorrhea, unspecified (principal); Z00.00 Encounter for general adult medical examination without abnormal findings

== ENCOUNTER 2024-05-01 09:01 | Outpatient (REF) | payer OTHER, SELFPAY ==
[2024-05-01 09:36] LABS: Binax Internal Control QC Valid; Binax Lot number: 869104; Binax Now Covid-19 Ag Positive (Negative); Binax Performed by: HO.BONILM
[2024-05-01 12:58] LABS: Influenza A PCR NEGATIVE (Negative); Influenza B PCR NEGATIVE (Negative); Resp Syncy Virus RNA Qual PCR NEGATIVE (Negative); SARS COV2 PCR INHOUSE POSITIVE (Negative)
== END 2024-05-01 09:02 | disposition home or self-care (01) ==
LOC: HO.HMGCLDS 09:01
PROVIDERS: PCP Internal Medicine; Visit Provider Physician Assistant Medical
DX: Z20.822 Contact with and (suspected) exposure to COVID-19 (principal); J06.9 Acute upper respiratory infection, unspecified
CPT/HCPCS: 0241U; 87811

== ENCOUNTER 2024-05-01 09:01 | Outpatient (AMB) | payer OTHER, SELFPAY ==
[2024-05-01 09:07] VITALS: BP 116/70; PULSE 102; TEMP 36.6; O2SAT 98
--- NOTE | 2024-05-01 09:07 | MHC.OFFWIV ---
Intake Vital Signs 05/01/24 09:07 Weight 215 lb BP 116/70 Blood Pressure Location Rt brachial Position Sitting Pulse 102 H Pulse Source Pulse Oximeter Temp 97.9 F Temp Source Oral Pulse Oximetry (%) 98 Oxygen Delivery Method Room Air Intake Visit Reasons: EP congestion, headache Intake Note: Patient here for sinus congestion and headaches that started about 4 days ago. Patient Tobacco Use Status: Former Tobacco user Allergies No Known Allergies [No Known Allergies*] Allergy (Verified 05/01/24 09:09) Do you need a note to return to daycare/school/sports/work: No HPI EP congestion, headache HPI Details Patient is a 34-year-old female with no underlying immuno compromising conditions who comes to the walk-in clinic complaining of headache and nasal and sinus congestion for the last 4 days. She has not tested for COVID yet. She has had recent contact with sick family members at holiday gatherings. No nausea vomiting or diarrhea, current fever or chills, purulent discharge, weakness or dizziness, significant cough, chest congestion, chest pressure or shortness of breath, sore throat, loss of sense of taste or smell, malaise or myalgias, or other significant associated symptoms. [facility] Medical History Vaginitis Annual physical exam Surgical History No pertinent past surgical history Family History Father Diabetes mellitus Mother No problems noted. 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 Current occupational exposures/hazards: No Cognitive needs: No Hearing needs: No Vision needs: Yes Review of Systems Const All systems reviewed & are unremarkable except as noted in HPI and below Physical Exam Vital Signs: Last Vital Signs Temp 97.9 F 05/01/24 09:07 Pulse 102 H 05/01/24 09:07 BP 116/70 05/01/24 09:07 Pulse Ox 98 05/01/24 09:07 Oxygen Delivery Method Room Air 05/01/24 09:07 Const General: cooperative, healthy appearing, comfortable, no acute distress, alert, awake, Physically active and well groomed; No anxious, diaphoretic, ill appearing, intoxicated appearing, poor hygiene or tired appearing Nutritional Appearance: average body habitus Orientation/consciousness: oriented to person Limitations: no limitations HEENT Head: Yes normal to inspection, Yes normocephalic and Yes atraumatic Ears: hearing grossly normal bilaterally, external ears normal, TM's normal bilaterally and EAC's normal General nose exam: Normal external nose present, Normal nares present, Abnormal mucous membranes and turbinates present and Nasal discharge present Face and sinus: Yes normal facial exam, Yes sinuses nontender and Yes face symmetric Mouth: Normal oral and palatal mucosa present, lip normal, tongue normal, oropharynx normal and moist mucous membranes Throat: Yes uvula midline, Yes abnormal tonsil (mildly erythematous bilaterally), No peritonsillar mass, Yes postnasal drainage, No uvular edema and No cobblestoning Eyes General: appearance normal, both eyes and all related structures Neck Neck: Yes normal visual inspection, Yes trachea midline, Yes supple and No anterior neck swelling Chest Chest palpation & inspection: normal palpation of entire chest wall Resp Effort & Inspection: normal respiratory effort, able to speak in complete sentences, no audible wheezes, no cough, no grunting, not labored, no nasal flaring, no retractions and symmetric chest movement Auscultation: clear to auscultation bilaterally, no crackles, no rales, no rhonchi, no wheezes, lung sounds not diminished and No rub present Cardio Palpation: normal PMI Rate: regular rate Rhythm: regular rhythm Heart sounds: S1 normal heart sound present and S2 normal heart sound present Skin Other: Good color, warm and dry Neuro General: oriented to person Psych Appearance: grossly normal Mental Status: mental status grossly normal Speech and movement: Normal speech and movement present Affect: normal affect Attitude: cooperative Thought process: Normal thought process present Insight: Good insight present (Psych) Judgement: Good judgement present (Psych) Assessment & Plan Assessment & Plan (1) Viral syndrome: Code(s): B34.9 - Viral infection, unspecified Plan Patient is a 34-year-old female with no underlying immuno compromising conditions, who comes to the walk-in clinic 4 days after holiday gatherings, where she had contact with sick family members. No home testing for COVID yet. Pending flu and COVID and RSV results. Her exam is remarkable for upper respiratory infection, with no obvious bacterial sinusitis. We discussed supportive measures, and we will consider treating with antiviral if she comes back positive. However at this point, there would be little benefit to it. She knows to follow up if symptoms persist or worsen, or can go to the emergency department with worrisome symptoms. Orders: Orders SARS-CoV2/FLU/RSV 05/01/24 J06.9 - Acute upper respiratory infection, unspecified [employer] Covid-19 Ag 05/01/24 Z20.822 - Contact with and (suspected) exposure to COVID-19 Coding Level of Care Code Est Pt Level 4 (61100) Diagnoses Viral syndrome B34.9
== END 2024-05-01 09:36 | disposition home or self-care (01) ==
PROVIDERS: PCP Internal Medicine; Visit Provider Physician Assistant Medical
DX: B34.9 Viral infection, unspecified (principal)

== ENCOUNTER 2024-12-17 09:46 | Outpatient (AMB) | payer OTHER, SELFPAY ==
--- NOTE | 2024-12-17 10:30 | AM.OFFWIN_ITS ---
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 Patient denies having any vision changes or discharge from her right eye. She wears glasses at baseline for vision. She has used Tylenol only for her discomfort. Patient denies any injury or trauma to her face or right eye prior to the onset of her symptoms and has not had any fevers or chills. [facility] Medical History Vaginitis Annual physical exam Surgical History No pertinent past surgical history Family History Father Diabetes mellitus Mother No problems noted. 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 Current occupational exposures/hazards: No Cognitive needs: No Hearing needs: No Vision needs: Yes Female Reproductive History Menstrual Date of last menstrual period: 12/12/24 Review of Systems Const All systems reviewed & are unremarkable except as noted in HPI and below Denies body aches, Denies chills, Denies fatigue and Denies fever(s) Eyes Reports no additional complaints, Denies change in vision, Denies eye discharge, Denies itchy eyes, Reports requires corrective lenses (glasses) and Reports other (pain right upper eyelid) ENT Reports no additional complaints Skin/Breast Reports system reviewed and no additional complaints, except as documented, Reports erythema, Denies photosensitivity and Denies rash Neuro Reports no additional complaints Psych Reports no additional complaints Endo Denies fatigue Aller/Immun Denies itchy eyes Physical Exam Vital Signs: Last Vital Signs Temp 98.1 F 12/17/24 10:36 Pulse 81 12/17/24 10:36 BP 100/70 12/17/24 10:36 Pulse Ox 99 12/17/24 10:36 Oxygen Delivery Method Room Air 12/17/24 10:36 BMI result Body Mass Index 36.1 Const General: cooperative, healthy appearing, comfortable, no acute distress, well developed, alert, awake and Physically active Nutritional Appearance: well nourished Orientation/consciousness: patient oriented x3 Limitations: no limitations HEENT Head: Yes normal to inspection and Yes normocephalic Eyes Alignment and Position: alignment normal Periorbital: periorbital findings normal Eyelids: Yes eyelid abnormality (Erythema and edema right upper eyelid with tenderness to direct examination) Conjunctivae: conjunctivae normal Sclerae: sclerae normal Pupils: Equal, round and reactive pupils present EOM: EOMs intact bilaterally Direct Ophthalmoscopy: normal light reflex and no photophobia Neck Lymphatic: no lymphadenopathy noted Skin Other: There is erythema and edema of the right upper eyelid that is limited to the eyelid only Neuro General: patient oriented x3 Cranial nerves: Yes Equal, round and reactive pupils present Psych Appearance: grossly normal Mental Status: mental status grossly normal Insight: Good insight present (Psych) Judgement: Good judgement present (Psych) Assessment & Plan Assessment & Plan (1) Hordeolum externum right upper eyelid: Comment: There is no clinical evidence of a periorbital cellulitis and patient is well-appearing, in no acute distress. Code(s): H00.011 - Hordeolum externum right upper eyelid Plan: Tylenol as needed for discomfort, warm compresses up to 5 times daily to the right upper eyelid. Follow up for any worsening symptoms. Coding Level of Care Code Est Pt Level 3 (32091) Diagnoses Hordeolum externum right upper eyelid H00.011 Time Spent (min) 15
[2024-12-17 10:36] VITALS: BP 100/70; PULSE 81; TEMP 36.7; O2SAT 99; BMI 36.1
== END 2024-12-17 10:48 | disposition home or self-care (01) ==
PROVIDERS: PCP Internal Medicine; Visit Provider Physician Assistant
DX: H00.011 Hordeolum externum right upper eyelid (principal)